=== PATIENT | female | born 1980 | race Caucasian/White ===

== ENCOUNTER 2019-05-28 12:52 | Emergency (ER) | payer MEDICAID, OTHER ==
[~2019-05-28] VITALS: Ht 170.2 cm; Wt 72.6 kg
[~2019-05-28 12:52] MED LIST: otc
[2019-05-28 12:56] VITALS: BP 115/96
[2019-05-28] MEDS: KETOROLAC 30 MG/ML VIAL IVP ONE (14:38)
[2019-05-28] MEDS: DIAZEPAM 5 MG TAB PO ONE (14:39)
[2019-05-28 15:09] LABS: BASOPHILS # (AUTO) 0.1 K/uL (0.00-0.22); BASOPHILS % (AUTO) 0.7 % (0.0-2.0); EOSINOPHILS # (AUTO) 0.3 K/uL (0-0.4); EOSINOPHILS % (AUTO) 3.8 % (0.0-4.0); HEMATOCRIT 44.8 % (36-48); HEMOGLOBIN 14.7 g/dL (12.0-16.0); LYMPHOCYTES % (AUTO) 22.7 % (20.5-51.1); MEAN CORPUSCULAR HEMOGLOBIN 30 pg (27-31); MEAN CORPUSCULAR HGB CONC 33 g/dL (33-37); MEAN CORPUSCULAR VOLUME 90.6 fL (80-94); MONOCYTES # (AUTO) 0.5 K/uL (0.8-1.0); NEUTROPHILS # (AUTO) 5.8 K/uL (1.8-7.7); NEUTROPHILS % (AUTO) 66.8 % (42.2-75.2); PLATELET COUNT (AUTO) 296 K/uL (140-450); RED BLOOD CELL COUNT(AUTO) 4.95 MIL/uL (4.20-5.40); RED CELL DISTRIBUTION WIDTH 13.7 % (11.6-13.7); WHITE BLOOD COUNT (AUTO) 8.7 K/uL (4.8-10.8)
[2019-05-28 15:40] LABS: ANION GAP 13.2 (8-16); CARBON DIOXIDE 26.4 mmol/L (21-32); POTASSIUM 3.6 mmol/L (3.5-5.1)
[2019-05-28 15:41] LABS: CREATININE 0.9 mg/dL (0.6-1.3)
[2019-05-28 17:35] VITALS: BP 123/78
== END 2019-05-28 17:35 | disposition home or self-care (01) ==
LOC: MED 12:52
DX: M54.16 Radiculopathy, lumbar region (principal); M54.41 Lumbago with sciatica, right side; J45.909 Unspecified asthma, uncomplicated
CPT/HCPCS: 36415; 72110; 80048; 81002; 81025; 84703; 85025; 85651; 86140; 96374; 99284; J1885